=== PATIENT | female | born 1985 | race African-American/Black ===

== ENCOUNTER 2018-06-27 17:37 | Outpatient (CLI) | payer BC ==
[~2018-06-27] VITALS: Ht 167.6 cm; Wt 94.5 kg
[2018-06-27 17:43] VITALS: BP_SYST 113
[2018-06-27] MEDS ORDERED: HYDROcodone/APAP 10/325 MG TABLET ONE (19:28)
[2018-06-27] MEDS ORDERED: HYDROcodone/APAP 10/325 MG TABLET PO ONE (19:30)
== END 2018-06-27 19:48 | disposition home or self-care (01) ==
LOC: LDOP 17:37
PROVIDERS: ATTEND Obstetrics & Gynecology
DX: O26.893 Other specified pregnancy related conditions, third trimester (principal); R10.9 Unspecified abdominal pain; Z3A.39 39 weeks gestation of pregnancy
CPT/HCPCS: 59025; 99211; G0463

== ENCOUNTER 2018-06-27 20:30 | Inpatient (IN) | payer BC ==
[~2018-06-27] VITALS: Ht 167.6 cm; Wt 94.5 kg
[2018-06-27 20:30] VITALS: BP 117/73
[2018-06-27] MEDS ORDERED: D5%-LACTATED RINGERS 1,000 ML IV SCH (20:32)
[2018-06-27] MEDS ORDERED: OXYTOCIN 30U/ 0.9% NaCL 500ML 500 ML IV ONE (20:32)
[2018-06-27] MEDS ORDERED: FENTANYL/BUPIV./NS/PF 250 ML EPIDCONT SCH ×2 (20:32→21:52)
[2018-06-27] MEDS: LACTATED RINGERS 1,000 ML IV SCH ×2 (20:35→23:51)
[2018-06-27] MEDS ORDERED: MISOPROSTOL 200 MCG TABLET ONE (20:36)
[2018-06-27] MEDS ORDERED: NEWBORN KIT ONE (20:36)
[2018-06-27] MEDS ORDERED: OXYTOCIN 30U/ 0.9% NaCL 500ML 500 ML ONE (20:36)
[2018-06-27] MEDS ORDERED: FENTANYL PF 100 MCG/2ML ONE ×2 (20:43→22:31)
[2018-06-27] MEDS ORDERED: FENTANYL PF 500 MCG, BUPIVACAINE/PF 0.5%, 30ML 62.5 ML in SODIUM CHLORIDE 0.9% 177.5 ML EPIDCONT SCH (21:00)
[2018-06-27] MEDS ORDERED: CALCIUM CARBONATE 500 MG TAB.CHEW PO PRN (21:00)
[2018-06-27] MEDS ORDERED: FENTANYL PF 100 MCG/2ML IVPush PRN (21:00)
[2018-06-27] MEDS ORDERED: PENICILLIN GK 5,000,000 UNITS in DEXTROSE 5% 100 ML IVPB ONE (21:00)
[2018-06-27] MEDS ORDERED: LACTATED RINGERS 1,000 ML IVBOLUS PRN ×2 (21:00→22:00)
[2018-06-27] MEDS ORDERED: ONDANSETRON 2MG/ML, 2ML IVPush PRN ×2 (21:00→22:00)
[2018-06-27] MEDS ORDERED: FENTANYL PF 100 MCG/2ML IV PRN (21:00)
[2018-06-27 21:01] LABS: BASOPHILS # (AUTO) 0.01 x10^3/uL (0-0.1); BASOPHILS % (AUTO) 0 % (0-1); EOSINOPHILS # (AUTO) 0.02 x10^3/uL (0-0.4); EOSINOPHILS % (AUTO) 0 % (1-7); LYMPHOCYTES # (AUTO) 1.59 x10^3/uL (1-3.4); LYMPHOCYTES % (AUTO) 16 % (22-44); MD NO; MEAN CORPUSCULAR HEMOGLOBIN 25.3 pg (27.0-34.8); MEAN CORPUSCULAR HGB CONC 32.4 g/dL (32.4-35.8); MEAN CORPUSCULAR VOLUME 77.9 fL (80-100); MONOCYTES # (AUTO) 0.87 x10^3/uL (0.2-0.8); MONOCYTES % (AUTO) 9 % (2-9); NEUTROPHILS # (AUTO) 7.62 x10^3/uL (1.8-6.8); NEUTROPHILS % (AUTO) 75 % (42-75); PLATELET COUNT 339 x10^3/uL (130-400); RED BLOOD COUNT 3.67 x10^6/uL (3.82-5.3); RED CELL DISTRIBUTION WIDTH 18.9 % (9.6-15.2)
[2018-06-27] MEDS ORDERED: BUPIVACAINE 0.25% ONE ×2 (21:11→22:31)
[2018-06-27] MEDS ORDERED: LACTATED RINGERS 1,000 ML IV SCH (21:52)
[2018-06-27] MEDS ORDERED: NALOXONE 0.4 MG/ML, 1ML IVPush PRN (22:00)
[2018-06-27] MEDS ORDERED: DIPHENHYDRAMINE 50 MG/ML, 1ML IVPush PRN (22:00)
[2018-06-27] MEDS ORDERED: EPHEDRINE 50 MG/ML, 1ML IVPush PRN (22:00)
[2018-06-27] MEDS: OXYTOCIN 30U/ 0.9% NaCL 500ML 500 ML IV SCH (23:50)
[2018-06-28] MEDS ORDERED: CARBOPROST TROMETHAMINE 250 MCG/ML, 1ML IM PRN
[2018-06-28] MEDS ORDERED: METHYLERGONOVINE 0.2 MG/ML IM PRN
[2018-06-28] MEDS ORDERED: METOCLOPRAMIDE 5 MG/ML, 2ML IV PRN
[2018-06-28] MEDS ORDERED: GLYCERIN ADULT SUPP PR PRN
[2018-06-28] MEDS ORDERED: ONDANSETRON 2MG/ML, 2ML IV PRN
[2018-06-28] MEDS ORDERED: BISACODYL 10 MG SUPP PR PRN
[2018-06-28] MEDS ORDERED: ACETAMINOPHEN 325 MG TABLET PO PRN
[2018-06-28] MEDS ORDERED: DOCUSATE 100 MG CAPSULE PO PRN
[2018-06-28] MEDS ORDERED: MISOPROSTOL 200 MCG TABLET PR PRN
[2018-06-28] MEDS ORDERED: OXYcodone/APAP 5/325MG TABLET PO PRN ×2
[2018-06-28] MEDS ORDERED: OXYTOCIN 30U/ 0.9% NaCL 500ML 500 ML ONE (00:47)
[2018-06-28] MEDS ORDERED: PENICILLIN GK 2,500,000 UNITS in DEXTROSE 5% 100 ML IVPB SCH (01:00)
[2018-06-28] MEDS: OXYTOCIN 30U/ 0.9% NaCL 500ML 500 ML IV SCH ×2 (01:03→19:47)
[2018-06-28 02:20] VITALS: BP 117/68
[2018-06-28 04:15] VITALS: BP 120/73
[2018-06-28] MEDS: IBUPROFEN 600 MG TABLET PO PRN ×3 (04:39→20:13)
[2018-06-28] MEDS: PRENATAL VIT/IRON/FA 1 EACH TABLET PO SCH (07:26)
[2018-06-28 07:30] LABS: MEAN CORPUSCULAR HEMOGLOBIN 24.7 pg (27.0-34.8); MEAN CORPUSCULAR HGB CONC 32.1 g/dL (32.4-35.8); MEAN CORPUSCULAR VOLUME 77.1 fL (80-100); MEAN PLATELET VOLUME 7.9 fL (7.4-10.4); PLATELET COUNT 301 x10^3/uL (130-400); RED BLOOD COUNT 3.42 x10^6/uL (3.82-5.3); RED CELL DISTRIBUTION WIDTH 18.7 % (9.6-15.2)
[2018-06-28 07:49] LABS: BASOPHILS # (AUTO) 0.01 x10^3/uL (0-0.1); BASOPHILS % (AUTO) 0 % (0-1); EOSINOPHILS # (AUTO) 0.01 x10^3/uL (0-0.4); EOSINOPHILS % (AUTO) 0 % (1-7); LYMPHOCYTES # (AUTO) 1.11 x10^3/uL (1-3.4); LYMPHOCYTES % (AUTO) 9 % (22-44); MD SCAN; MONOCYTES # (AUTO) 0.86 x10^3/uL (0.2-0.8); MONOCYTES % (AUTO) 7 % (2-9); NEUTROPHILS # (AUTO) 10.87 x10^3/uL (1.8-6.8); NEUTROPHILS % (AUTO) 85 % (42-75)
[2018-06-28 08:00] VITALS: BP 105/70
[2018-06-28 12:00] VITALS: BP 103/67
[2018-06-28 16:00] VITALS: BP 111/77
[2018-06-28 19:20] VITALS: BP 113/70
[2018-06-29] MEDS: OXYTOCIN 30U/ 0.9% NaCL 500ML 500 ML IV SCH ×2 (05:47→15:47)
[2018-06-29 07:15] VITALS: BP 119/80
[2018-06-29] MEDS: PRENATAL VIT/IRON/FA 1 EACH TABLET PO SCH (07:58)
[2018-06-29] MEDS ORDERED: IBUP-1222 PO (09:35)
[2018-06-29] MEDS ORDERED: FERROUS GLUCONATE 324 MG TABLET PO SCH (11:00)
[2018-06-29] MEDS ORDERED: FERR324T8 PO (11:33)
== END 2018-06-29 18:00 | disposition home or self-care (01) | DRG 807 ==
LOC: LDOP 20:30 → LDIP 20:37 → 2NW 06-28 01:58
PROVIDERS: ADMIT Obstetrics & Gynecology; ATTEND Obstetrics & Gynecology
PROC: 10E0XZZ Delivery of Products of Conception, External Approach (ICD-10-PCS; principal; 2018-06-27)
PROC: 3E0R3BZ Introduction of Anesthetic Agent into Spinal Canal, Percutaneous Approach (ICD-10-PCS; 2018-06-27)
PROC: 00HU33Z Insertion of Infusion Device into Spinal Canal, Percutaneous Approach (ICD-10-PCS; 2018-06-27)
DX: O99.824 Streptococcus B carrier state complicating childbirth (principal); Z37.0 Single live birth; M41.9 Scoliosis, unspecified; Z3A.38 38 weeks gestation of pregnancy; O90.81 Anemia of the puerperium; D64.9 Anemia, unspecified; Z80.3 Family history of malignant neoplasm of breast; Z82.49 Family history of ischemic heart disease and other diseases of the circulatory system; Z83.3 Family history of diabetes mellitus
CPT/HCPCS: 36415; 85025; 86850; 86900; G0378; J2540; J3010; J3490; J2590; J7050; J7120